=== PATIENT | male | born 1935 | race Hispanic/Latino ===

== ENCOUNTER 2017-12-16 07:12 | Observation (INO) | payer MEDICARE ==
[2017-12-16] MEDS ORDERED: VERSED ONE (08:33)
[2017-12-16] MEDS ORDERED: SUBLIMAZE ONE (08:33)
[2017-12-16] MEDS ORDERED: DIPRIVAN 10 MG/ML IV ONE (08:34)
[2017-12-16] MEDS ORDERED: XYLOCAINE MPF 2% ONE (08:34)
[2017-12-16] MEDS ORDERED: ROBINUL ONE ×3 (08:34→12:06)
[2017-12-16] MEDS ORDERED: ZEMURON IV ONE (08:35)
[2017-12-16] MEDS ORDERED: MORPHINE IV PRN ×2 (08:42→18:31)
[2017-12-16] MEDS ORDERED: TYLENOL PO PRN ×2 (08:42→18:31)
--- NOTE | 2017-12-16 08:49 | Anesthesia Consultation ---
Anesthesia Consult and Med Hx - Airway Anesthetic Teeth Evaluation: Poor ROM Head & Neck: Adequate Mallampati Class: Class II - Pulmonary Exam CTA: Yes - Cardiac Exam Cardiac Exam: RRR - Pre-Operative Health Status ASA Pre-Surgery Classification: ASA4 Proposed Anesthetic Plan: General (difficulty hearing), IV Sedation - Pulmonary Hx Smoking: Yes (QUIT IN 1974) COPD: Yes - Cardiovascular System Hx Hypertension: Yes (OVER 10 YEARS) - Central Nervous System Hx Psychiatric Problems: No - Endocrine Hx Insulin Dependent Diabetes: No Hx Non-Insulin Dependent Diabetes: Yes - Other Systems Hx Alcohol Use: No Hx Substance Use: No Hx Cancer: Yes (SKIN)
--- NOTE | 2017-12-16 08:50 | Anesthesia Day of Surgery ---
Anesthesia Day of Surgery - Day of Surgery Patient Examined: Yes Patient H&P Reviewed: Yes Patient is NPO: Yes Beta Blockers: No Cardiac Clearance: No Pulmonary Clearance: No
[2017-12-16] MEDS ORDERED: NACL 0.9% 1000 ML 1,000 ML IV SCH (09:00)
[2017-12-16] MEDS ORDERED: NEO SYNEPHRINE/NS Syringe(OR USE) IV ONE (09:25)
[2017-12-16] MEDS ORDERED: ANCEF/STERILE WATER 2 GM/20 ML IV NR (10:00)
[2017-12-16] MEDS ORDERED: MARCAINE 0.25% INFILTRATI ONE ×2 (10:29→11:33)
--- NOTE | 2017-12-16 10:36 | Anesthesia Day of Surgery ---
Anesthesia Day of Surgery - Day of Surgery Patient Examined: Yes Patient H&P Reviewed: Yes Patient is NPO: Yes
[2017-12-16] MEDS ORDERED: CLEOCIN 900 MG/50 mL 900 MG/50 ML BAG IV SCH (11:00)
[2017-12-16] MEDS ORDERED: ePHEDrine SULFATE ONE (11:03)
[2017-12-16] MEDS ORDERED: NEO SYNEPHRINE ONE (11:21)
[2017-12-16] MEDS ORDERED: ARTIFICIAL TEARS OPHTH OINT ONE (11:21)
[2017-12-16] MEDS ORDERED: NACL 0.9% 100 ML ONE (11:21)
[2017-12-16] MEDS ORDERED: ZOFRAN ONE (11:39)
[2017-12-16] MEDS ORDERED: NEOSTIGMINE ONE (12:06)
[2017-12-16] MEDS ORDERED: ANTIBIOTIC OINT TP ONE ×2 (12:08→12:11)
[2017-12-16] MEDS ORDERED: BSS ONE (12:08)
[2017-12-16] MEDS ORDERED: BSS OU ONE (12:12)
--- NOTE | 2017-12-16 12:47 | Post Anesthesia Evaluation ---
- Post Anesthesia Evaluation Patient Participated: Yes Airway Patent: Yes Stable Respiratory Function: Yes Nausea/Vomiting: Yes Temp > 96.8F: Yes Pain Manageable: Yes Adequeate Hydration: Yes Anesthesia Complications: No
[2017-12-16] MEDS ORDERED: ZOFRAN IV PRN ×2 (13:24→18:31)
[2017-12-16] MEDS ORDERED: DILAUDID IV PRN (13:24)
[2017-12-16 14:21] LABS: Calcium 8.2 mg/dL (8.4-10.2)
[2017-12-16] MEDS ORDERED: NACL 0.9% 1000 ML 1,000 ML ONE (14:21)
[2017-12-16] MEDS ORDERED: TYLENOL PO NR (15:00)
[2017-12-16] MEDS ORDERED: NON-FORMULARY (Losartan Potassium 100 MG) PO SCH (18:30)
[2017-12-16] MEDS ORDERED: NON-FORMULARY (Metolazone 5 MG) PO SCH (18:30)
[2017-12-16] MEDS ORDERED: ROPINIROLE HCL 0.25 MG PO SCH (18:30)
[2017-12-16] MEDS ORDERED: NON-FORMULARY (Amlodipine Besylate 10 MG) PO SCH (18:30)
[2017-12-16] MEDS ORDERED: JANUVIA 100 MG PO SCH (18:30)
[2017-12-16] MEDS ORDERED: POTASSIUM CHLORIDE 8 MEQ PO SCH (18:30)
[2017-12-16] MEDS ORDERED: SODIUM CHLORIDE FLUSH SYRINGE 10 ML IV PRN (18:31)
[2017-12-16] MEDS ORDERED: PERCOCET 5/325 PO PRN (18:31)
[2017-12-16] MEDS ORDERED: DUONEB *Not for PRN Use IH (18:36)
--- NOTE | 2017-12-16 18:44 | History and Physical Report ---
History of Present Illness Date of examination: 12/16/17 Date of admission: 12/16/17 15:42 Chief complaint: Chief complaint: Shortness of breath and low oxygen saturations- postoperative. History of present illness: History of present illness: 82-year-old male who had a nose lesion removed and a flap was placed taken from the earlobe. Postop patient was hypoxic persistently hence admission to the floor for management of hypoxia and shortness of breath. Patient is a remote smoker until 1974. Patient has history of COPD hypertension and insulin-dependent diabetes. Patient has been wheezing while in the PACU. Because of the low sats it was decided to admit the patient directly from the PACU. Cough productive of mucoid sputum. No fever or chills Past History Past Medical History: diabetes, hypertension Past Surgical History: Other (nose surgery) Social history: lives with family, smoking (Till 1974), full code Family history: hypertension Medications and Allergies Allergies Allergy/AdvReac Type Severity Reaction Status Date / Time codeine Allergy Severe DRIVE ME Verified 12/14/17 16:08 CRAZY Penicillins Allergy Swelling Verified 12/14/17 16:08 pseudoephedrine Allergy MAKES HIM Verified 12/14/17 16:08 [From [facility]] FEEL CRAZY Sulfa (Sulfonamide Allergy Swelling Verified 12/14/17 16:08 Antibiotics) Home Medications Medication Instructions Recorded Confirmed Last Taken Type Amlodipine Besylate 10 mg PO 12/16/17 12/16/17 History Januvia 100 mg 12/16/17 12/15/17 History Levemir Flextouch 62.5 mcg 12/16/17 12/15/17 History Losartan Potassium PO 12/16/17 12/16/17 History Metolazone 5 mg 12/16/17 12/15/17 History Potassium Chloride PO 12/16/17 12/15/17 History Ropinirole HCl 0.25 mg 12/16/17 12/15/17 History Spironolactone [Aldactone] PO 12/16/17 12/15/17 History Active Meds: Active Medications Acetaminophen (Tylenol) 650 mg PO PREOP NR Stop: 12/16/17 23:59 Last Admin: 12/16/17 14:40 Dose: 650 mg Acetaminophen (Tylenol) 650 mg PO Q4H PRN PRN Reason: Pain MILD(1-3)/Fever >100.5/PERRY Albuterol/Ipratropium (Duoneb *Not For Prn Use*) 1 ampul IH QIDRT MIKAYLA Albuterol/Ipratropium (Duoneb *Not For Prn Use*) 1 ampul IH Q3H PRN PRN Reason: Wheezing Famotidine (Pepcid) 20 mg IV BID MIKAYLA Hydromorphone HCl (Dilaudid) 0.25 mg IV Q10MIN PRN PRN Reason: Pain, Moderate (4-6) Stop: 12/16/17 23:59 Last Admin: 12/16/17 13:25 Dose: 0.25 mg Sodium Chloride (Nacl 0.9% 1000 Ml) 1,000 mls @ 42 mls/hr IV DIRECT MIKAYLA Clindamycin HCl (Cleocin 900 Mg/50 Ml) 900 mg in 50 mls @ 100 mls/hr IV PREOP MIKAYLA; Protocol Stop: 12/16/17 23:59 Insulin Human Lispro (Humalog) 0 unit SUB-Q ACHS [facility]; Protocol Miscellaneous Medication (Amlodipine Besylate) 10 mg PO QDAY [facility] Miscellaneous Medication (Januvia) 100 mg PO QDAY [facility] Miscellaneous Medication (Losartan Potassium) 100 mg PO QDAY [facility] Miscellaneous Medication (Metolazone) 5 mg PO QDAY [facility] Miscellaneous Medication (Potassium Chloride) 8 meq PO QDAY [facility] Miscellaneous Medication (Ropinirole Hcl) 0.25 mg PO QDAY [facility] Morphine Sulfate (Morphine) 2 mg IV Q4H PRN PRN Reason: Pain, Moderate (4-6) Ondansetron HCl (Zofran) 4 mg IV ONCE PRN PRN Reason: Nausea And Vomiting Ondansetron HCl (Zofran) 4 mg IV Q8H PRN PRN Reason: Nausea And Vomiting Oxycodone/Acetaminophen (Percocet 5/325) 1 tab PO Q6H PRN PRN Reason: Pain, Moderate (4-6) Sodium Chloride (Sodium Chloride Flush Syringe 10 Ml) 10 ml IV BID [facility] Sodium Chloride (Sodium Chloride Flush Syringe 10 Ml) 10 ml IV PRN PRN PRN Reason: LINE FLUSH Review of Systems All systems: negative Cardiovascular: shortness of breath, dyspnea on exertion Respiratory: dyspnea on exertion, congestion, wheezing Exam - Physical Exam Narrative exam: Lying in bed on 28% Ventimask - Constitutional Vitals: Temp Pulse Resp BP Pulse Ox 97.5 F L 55 L 17 102/44 90 12/16/17 16:50 12/16/17 16:50 12/16/17 16:50 12/16/17 16:50 12/16/17 16:50 General appearance: Present: mild distress, well-nourished - EENT Eyes: Present: PERRL ENT: hearing intact, clear oral mucosa - Neck Neck: Present: supple, normal ROM - Respiratory Respiratory effort: normal Respiratory: bilateral: CTA, rales, rhonchi - Cardiovascular Heart rate: 80 Rhythm: regular Heart Sounds: Present: S1 & S2. Absent: rub, click - Extremities Extremities: no ischemia, pulses intact, pulses symmetrical, No edema Peripheral Pulses: within normal limits - Abdominal General gastrointestinal: Present: soft, non-tender, non-distended, normal bowel sounds Male genitourinary: Present: normal - Integumentary Integumentary: Present: clear, warm, dry - Musculoskeletal Musculoskeletal: gait normal, strength equal bilaterally - Psychiatric Psychiatric: appropriate mood/affect, intact judgment & insight - Neurologic Neurologic: CNII-XII intact, moves all extremities - Allied Health Allied health notes reviewed: nursing, case management Results - Labs CBC & Chem 7: 12/16/17 13:58 Labs: Laboratory Last Values Sodium 139 mmol/L (137-145) 12/16/17 13:58 Potassium 5.0 mmol/L (3.6-5.0) 12/16/17 13:58 Chloride 105.5 mmol/L (98-107) 12/16/17 13:58 Carbon Dioxide 22 mmol/L (22-30) 12/16/17 13:58 Anion Gap 17 mmol/L 12/16/17 13:58 BUN 27 mg/dL (9-20) H 12/16/17 13:58 Creatinine 1.6 mg/dL (0.8-1.5) H 12/16/17 13:58 Estimated GFR 41 ml/min 12/16/17 13:58 BUN/Creatinine Ratio 17 % 12/16/17 13:58 Glucose 180 mg/dL (75-100) H 12/16/17 13:58 POC Glucose 165 (70-105) H 12/16/17 12:39 Calcium 8.2 mg/dL (8.4-10.2) L 12/16/17 13:58 - Imaging and Cardiology Chest x-ray: report reviewed Assessment and Plan Advance Directives: Yes (Full code) VTE prophylaxis?: Chemical Plan of care discussed with patient/family: Yes - Patient Problems (1) Acute respiratory failure Current Visit: Yes Status: Acute Qualifiers: Respiratory failure complication: hypoxia Qualified Code(s): J96.01 - Acute respiratory failure with hypoxia Plan to address problem: Postop patient had persistent low oxygen levels which improved with 28% Ventimask to 92. Initial oxygen levels were ranging from 80-85. And patient also had rhonchi bilaterally. Hence it was decided to admit for 1 or 2 days for observation and treatment (2) Acute diastolic heart failure Current Visit: Yes Status: Acute Plan to address problem: We will get an echocardiogram for ejection fraction and valve function Lasix initiated 1 dose of 40 mg given now Patient is also on metolazone 5 mg daily (3) COPD with acute exacerbation Current Visit: Yes Status: Acute Plan to address problem: Patient initiated on DuoNeb nebs and IV antibiotics and low-dose IV Solu-Medrol at 40 mg every 8 (4) Insulin dependent diabetes mellitus Current Visit: Yes Status: Chronic Plan to address problem: Continue insulin coverage and Januvia 100 mg once a day or equivalent alternative (5) Status post surgery Current Visit: Yes Status: Acute Plan to address problem: Surgery on the tip of nose for removal of a skin lesion probably cancerous. Flap from the ear was placed on the nose (6) Hypertension Current Visit: Yes Status: Chronic Qualifiers: Hypertension type: essential hypertension Qualified Code(s): I10 - Essential (primary) hypertension Plan to address problem: Continue antihypertensives (7) DVT prophylaxis Current Visit: Yes Status: Acute Plan to address problem: On heparin 5000 q12 h Sub Q
[2017-12-16] MEDS ORDERED: PROVENTIL IH PRN (18:48)
[2017-12-16] MEDS ORDERED: ZAROXOLYN PO SCH (19:00)
[2017-12-16] MEDS ORDERED: LASIX IV SCH (19:00)
[2017-12-16 19:37] LABS: Basophils # (Auto) 0.1 K/mm3 (0.0-0.1); Basophils % (Auto) 0.7 % (0.0-1.8); Eosinophils # (Auto) 0.1 K/mm3 (0.0-0.4); Eosinophils % (Auto) 0.9 % (0.0-4.3); Hematocrit 35.4 % (35.5-45.6); Lymphocytes # (Auto) 1.7 K/mm3 (1.2-5.4); Lymphocytes % (Auto) 13.7 % (13.4-35.0); Mean Corpuscular HGB Conc 34 % (32-34); Mean Corpuscular Hemoglobin 30 pg (28-32); Mean Corpuscular Volume 89 fl (84-94); Monocytes # (Auto) 0.7 K/mm3 (0.0-0.8); Monocytes % (Auto) 5.6 % (0.0-7.3); Platelet Count 311 K/mm3 (140-440); Red Cell Distribution Width 14.4 % (13.2-15.2)
[2017-12-16 19:58] LABS: Albumin 3.4 g/dL (3.9-5); Calcium 8.2 mg/dL (8.4-10.2)
[2017-12-16] MEDS ORDERED: LEVAQUIN 750MG/150ML 750 MG/150 ML BAG IV SCH (20:00)
--- NOTE | 2017-12-16 20:26 | Operative Report ---
PREOPERATIVE DIAGNOSES: 1. Acquired deformity of nose status post Mohs excision of skin cancer. 2. Personal history of skin cancer to the nose. POSTOPERATIVE DIAGNOSES: 1. Acquired deformity of nose status post Mohs excision of skin cancer. 2. Personal history of skin cancer to the nose. PROCEDURE: Nasal reconstruction: 1. Superiorly based nasolabial flap to nose. 2. Ear cartilage graft to nose. 3. Mucosal advancement flap, nose. SURGEON: Jaciel Lee MD [employer]ER: None. ANESTHESIA: General. DRAINS: None. SPECIMENS: None. COMPLICATIONS: None. ESTIMATED BLOOD LOSS: 10 mL. INDICATIONS: The patient is an 82-year-old gentleman who presents with a large nasal defect and deformity of the nose following excision of a skin cancer to the left alar rim. He is missing skin mucosa and cartilage with a gap involving the alar rim on the left side of the nose. We discussed options for reconstruction and decided to proceed with the above-mentioned procedure. Medical clearance has been obtained from his primary care physician. After the surgery, technical aspects, typical recovery period, and potential risks involved were discussed fully including but not limited to postop bleeding, infection, pain, scarring, deformity, hematoma, or seroma formation, risk of paresthesias or numbness, partial or complete loss of the flap, failure to achieve artistic goals, and need for revision surgery. He understands the staged nature of the procedure and then a subsequent division and inset will be planned for in the near future. DESCRIPTION OF PROCEDURE: The patient was brought to the operating room and placed on the operating table, was induced with general anesthesia prior to which IV antibiotics and pneumatic compression boots for DVT prophylaxis were utilized. The head and neck there was prepped with Betadine gel and draped in the usual sterile fashion. A 0.25% Marcaine was injected into the operative field into the donor and recipient sites. Attention was first turned towards harvesting an ear cartilage graft from the left postauricular surface. An incision was made with a 15 blade scalpel and cartilage. A strip of cartilage from the conchal bowl was excised with a posterior approach and placed in a saline moistened gauze. The cartilage was fairly brittle and did not hold sutures well at the donor site, and therefore, I was unable to reapproximate the edge of the cartilage in this area. Hemostasis was meticulously achieved and skin closure was facilitated with a running locking 4-0 Monocryl suture. The recipient site was then prepared by excision of additional 1 mm of skin back to fresh straight bleeding skin edge. Tunnel was created anteriorly and posteriorly for the placement of the cartilage graft. Prior to placing the cartilage graft, a right pedicled mucosal advancement flap was designed and elevated with a 15 blade scalpel inside the left naris. a nasolabial flap based superiorly was incised with a 15 blade scalpel along the nasolabial fold and cheek. It was elevated with tenotomy scissors. The donor site was widely undermined to promote a tension-free repair with a tenotomy scissors. Meticulous hemostasis was achieved with electrocautery. The site was irrigated with saline and closed in layers with 4-0 Monocryl below the deep dermis and a running 5-0 nylon suture at the level of the skin donor site. The cartilage graft was trimmed to the appropriate size and dimension and placed into the anterior and posterior pockets to recreate the alar rim structure. This was sewn in place with interrupted 5-0 chromic sutures. The nasolabial flap was truncated to appropriate size, bent along its undersurface, taking care not to violate the deep dermal plexus. There was inset with a combination of horizontal mattress and simple 5-0 nylon sutures overlying the cartilage graft. The inferior edge of this was tunneled to leading edge of the mucosal advancement flap with interrupted 5-0 chromic sutures. Antibiotic moistened Xeroform gauze was applied to all sites. He tolerated the procedure well and was extubated and transferred to recovery area in stable condition. JOB# [id number] /NOMI
[2017-12-16] MEDS: DUONEB *Not for PRN Use IH SCH (21:02)
--- NOTE | 2017-12-16 21:09 | XRay Report ---
FINAL REPORT PROCEDURE: XR CHEST 1V AP TECHNIQUE: Chest radiograph anteroposterior view. CPT 56251 HISTORY: sob post operative COMPARISON: No prior studies are available for comparison. FINDINGS: Heart: Cardiac size is upper limit of normal.. Mediastinum/Vessels: Normal. Lungs/Pleural space: There is suboptimal inspiration. An ill-defined nodular density measuring 1.1 centimeters is noted in the left midlung. Diffuse prominence of interstitial markings is noted. Bilateral pleural spaces are clear.. Bony thorax: No acute osseous abnormality. Life support devices: None. IMPRESSION: Limited study due to suboptimal inspiration 1.1 centimeter ill-defined nodular density may represent infiltrate versus mass. A two view chest study is recommended for further evaluation. Prominent interstitial markings most likely represent interstitial fibrosis versus interstitial edema..
[2017-12-16] MEDS ORDERED: PEPCID IV SCH (22:00)
[2017-12-16] MEDS ORDERED: SODIUM CHLORIDE FLUSH SYRINGE 10 ML IV SCH (22:00)
[2017-12-16] MEDS ORDERED: REQUIP PO SCH (22:00)
[2017-12-16] MEDS ORDERED: ANCEF/NS 1 GM/50 ML 1 GM/50 ML BAG IV SCH (22:00)
[2017-12-16] MEDS: KLOR-CON 8 PO SCH (23:29)
[2017-12-16] MEDS: ceFAZolin 1 GM in NACL 0.9% 20 ML IV SCH (23:31)
[2017-12-16] MEDS: HumaLOG SUB-Q SCH (23:43)
[2017-12-17] MEDS: COZAAR PO SCH ×2 (01:52→16:59)
[2017-12-17] MEDS: TRADJENTA PO SCH ×2 (01:53→13:40)
[2017-12-17] MEDS: NORVASC PO SCH ×2 (01:54→10:44)
[2017-12-17 05:16] LABS: Hematocrit 37.4 % (35.5-45.6); Hemoglobin 12.3 gm/dl (11.8-15.2); Mean Corpuscular HGB Conc 33 % (32-34); Mean Corpuscular Hemoglobin 29 pg (28-32); Mean Corpuscular Volume 89 fl (84-94); Platelet Count 337 K/mm3 (140-440); Red Blood Count 4.21 M/mm3 (3.65-5.03); Red Cell Distribution Width 14.5 % (13.2-15.2)
[2017-12-17 05:31] LABS: Calcium 8.7 mg/dL (8.4-10.2)
[2017-12-17] MEDS: ceFAZolin 1 GM in NACL 0.9% 20 ML IV SCH (06:18)
[2017-12-17 06:30] LABS: Anisocytosis 1+; Band Neutrophils # (Manual) 1.1 K/mm3; Basophils % (Manual) 0 % (0.0-1.8); Eosinophils % (Manual) 0 % (0.0-4.3); Total Cells Counted 100
[2017-12-17 06:31] LABS: Large Platelets Few
[2017-12-17] MEDS: DUONEB *Not for PRN Use IH SCH ×3 (08:00→17:21)
[2017-12-17] MEDS ORDERED: PEPCID PO SCH (10:00)
[2017-12-17] MEDS: KLOR-CON 8 PO SCH (10:46)
--- NOTE | 2017-12-17 12:16 | Consultation ---
History of Present Illness Consult date: 12/17/17 Consult reason: congestive heart failure History of present illness: This is an 82yr old male who presented for outpatient nasal reconstruction surgery. Postoperatively, patient was noted hypoxic with reports of oxygen saturations 88% and admitted for further evaluation. A cardiac consultation was requested for CHF evaluation. Patient denies a prior cardiac history. He does not follow with a housekeeping/laundry as an outpatient. A chest xray reports suspects interstitial fibrosis versus interstitial edema. His postoperative 12 lead ECG is a sinus rhythm with second degree AV block which has since resolved. He currently, has a normal sinus rhythm on telemetry monitoring. Past History Past Medical History: diabetes, hypertension Past Surgical History: Other (nose surgery) Social history: lives with family, full code Family history: hypertension Medications and Allergies Allergies Allergy/AdvReac Type Severity Reaction Status Date / Time codeine Allergy Severe DRIVE ME Verified 12/14/17 16:08 CRAZY Penicillins Allergy Swelling Verified 12/14/17 16:08 pseudoephedrine Allergy MAKES HIM Verified 12/14/17 16:08 [From [facility]] FEEL CRAZY Sulfa (Sulfonamide Allergy Swelling Verified 12/14/17 16:08 Antibiotics) Home Medications Medication Instructions Recorded Confirmed Last Taken Type Amlodipine Besylate 10 mg PO 12/16/17 12/16/17 History Januvia 100 mg 12/16/17 12/15/17 History Levemir Flextouch 62.5 mcg 12/16/17 12/15/17 History Losartan Potassium PO 12/16/17 12/16/17 History Metolazone 5 mg 12/16/17 12/15/17 History Potassium Chloride PO 12/16/17 12/15/17 History Ropinirole HCl 0.25 mg 12/16/17 12/15/17 History Spironolactone [Aldactone] PO 12/16/17 12/15/17 History Active Meds: Active Medications Acetaminophen (Tylenol) 650 mg PO Q4H PRN PRN Reason: Pain MILD(1-3)/Fever >100.5/PERRY Albuterol (Proventil) 2.5 mg IH Q4HRT PRN PRN Reason: Wheezing Albuterol/Ipratropium (Duoneb *Not For Prn Use*) 1 ampul IH QIDRT MIKAYLA Last Admin: 12/17/17 08:00 Dose: Not Given Amlodipine Besylate (Norvasc) 10 mg PO DAILY [facility] Last Admin: 12/17/17 10:44 Dose: 10 mg Famotidine (Pepcid) 10 mg PO BID [facility] Last Admin: 12/17/17 10:44 Dose: 10 mg Furosemide (Lasix) 40 mg IV Q24H [facility] Last Admin: 12/16/17 22:25 Dose: 40 mg Sodium Chloride (Nacl 0.9% 1000 Ml) 1,000 mls @ 42 mls/hr IV DIRECT MIKAYLA Levofloxacin/Dextrose (Levaquin 750mg/150ml) 750 mg in 150 mls @ 100 mls/hr IV Q48HR [facility]; Protocol Cefazolin Sodium 1 gm/ Sodium (Chloride) 20 mls @ 2 mls/min IV Q12HR [facility] Insulin Human Lispro (Humalog) 0 unit SUB-Q ACHS [facility]; Protocol Last Admin: 12/16/17 23:43 Dose: 3 unit Linagliptin (Tradjenta) 5 mg PO QDAY [facility] Last Admin: 12/17/17 01:53 Dose: Not Given Losartan Potassium (Cozaar) 100 mg PO QDAY [facility] Last Admin: 12/17/17 01:52 Dose: Not Given Methylprednisolone Sodium Succinate (Solu-Medrol) 40 mg IV Q8HR [facility] Last Admin: 12/17/17 06:17 Dose: 40 mg Metolazone (Zaroxolyn) 5 mg PO QDAY [facility] Last Admin: 12/16/17 23:30 Dose: 5 mg Morphine Sulfate (Morphine) 2 mg IV Q4H PRN PRN Reason: Pain, Moderate (4-6) Ondansetron HCl (Zofran) 4 mg IV Q8H PRN PRN Reason: Nausea And Vomiting Last Admin: 12/17/17 08:04 Dose: 4 mg Oxycodone/Acetaminophen (Percocet 5/325) 1 tab PO Q6H PRN PRN Reason: Pain, Moderate (4-6) Potassium Chloride (Klor-Con 8) 8 meq PO QDAY [facility] Last Admin: 12/17/17 10:46 Dose: 8 meq Ropinirole HCl (Requip) 0.25 mg PO QHS [facility] Last Admin: 12/16/17 23:29 Dose: 0.25 mg Sodium Chloride (Sodium Chloride Flush Syringe 10 Ml) 10 ml IV BID MIKAYLA Sodium Chloride (Sodium Chloride Flush Syringe 10 Ml) 10 ml IV PRN PRN PRN Reason: LINE FLUSH Physical Examination Vital Signs Temp Pulse Resp BP Pulse Ox 98.8 F 56 L 20 152/51 96 12/16/17 08:25 12/16/17 08:25 12/16/17 08:25 12/16/17 08:25 12/16/17 08:25 General appearance: no acute distress HEENT: Positive: PERRL Cardiac: Positive: Reg Rate and Rhythm Neuro: Positive: Grossly Intact Extremities: Absent: edema Results 12/17/17 04:12 12/17/17 04:12 Cardiac Enzymes 12/16/17 12/17/17 Range/Units 19:26 04:12 AST 16 19 (5-40) units/L CBC 12/16/17 12/17/17 Range/Units 19:26 04:12 WBC 12.7 H 16.0 H (4.5-11.0) K/mm3 RBC 4.00 4.21 (3.65-5.03) M/mm3 Hgb 12.0 12.3 (11.8-15.2) gm/dl Hct 35.4 L 37.4 (35.5-45.6) % Plt Count 311 337 (140-440) K/mm3 Lymph # 1.7 (1.2-5.4) K/mm3 [place] # 0.7 (0.0-0.8) K/mm3 Eos # 0.1 (0.0-0.4) K/mm3 Baso # 0.1 (0.0-0.1) K/mm3 Comprehensive Metabolic Panel 12/16/17 12/16/17 12/17/17 Range/Units 13:58 19:26 04:12 Sodium 139 137 137 (137-145) mmol/L Potassium 5.0 5.0 4.6 (3.6-5.0) mmol/L Chloride 105.5 102.2 99.8 (98-107) mmol/L Carbon Dioxide 22 19 L 20 L (22-30) mmol/L BUN 27 H 25 H 25 H (9-20) mg/dL Creatinine 1.6 H 1.6 H 1.6 H (0.8-1.5) mg/dL Glucose 180 H 260 H 247 H (75-100) mg/dL Calcium 8.2 L 8.2 L 8.7 (8.4-10.2) mg/dL AST 16 19 (5-40) units/L ALT 12 9 (7-56) units/L Alkaline Phosphatase 35 42 (35-129) units/L Total Protein 6.4 7.4 (6.3-8.2) g/dL Albumin 3.4 L 4.0 (3.9-5) g/dL Assessment and Plan Acute hypoxic respiratory failure s/p nasal surgery Hypertension Diabetes We will get an echocardiogram for LVEF assessment.
[2017-12-17] MEDS: HumaLOG SUB-Q SCH ×2 (13:39→16:57)
[2017-12-17 15:52] VITALS: BP 138/48
[2017-12-17] MEDS ORDERED: ANTIBIOTIC OINT TP SCH (17:00)
--- NOTE | 2017-12-17 17:28 | Discharge Summary ---
Providers - Providers Date of Admission: 12/16/17 15:42 Date of discharge: 12/17/17 Attending physician: CLIFTON CORTEZ 12/16/17 19:19 Consult to Physician [CONS] Routine Comment: Consulting Provider: STEPHEN TALLEY Physician Instructions: Reason For Exam: CHF/COPD Primary care physician: Primary care Physician Hospitalization Reason for admission: Shortness of breath post op Pertinent studies: CXR, ECHO Procedures: Superiorly based nasolabial flap for a nose for repair fo nose deformity s/p Mohs excision of nose cancer Hospital course: 82-year-old male who has a history of COPD, DM, HTN had a nose lesion removed and a flap was placed taken from the earlobe. Postop patient was hypoxic persistently hence admission to the floor for management of hypoxia and shortness of breath. Patient is a remote smoker until 1974. Patient has history of COPD hypertension and insulin-dependent diabetes. Patient has been wheezing while in the PACU. Because of the low sats it was decided to admit the patient directly from the PACU. Cough productive of mucoid sputum. No fever or chills. Was commence on bronchodilator on admission with iv solumedrol. EKG showed Wenckebach AV block and junctional rhythm though to be like from enhance vagal tone post surgery percardiologist that was consulted. Cardia ischemic evaluation was recommended. However pt decline wanting to go home. He is sitting up and taking with friends with no chest pain or shortness of breath. Has Leukocytosis icndy is thought to be secondary to steriod administration. Has no fever. Pt will therefore be discharged to f/u with his PCP in 2-3 days and his plastic surgon in 1 week. He ws advised to continue with Anoro in additional to albuterol inhaler. He expressed understanding of the discharge plan. I discussed with his plastic surgeon. Disposition: DC-01 TO HOME OR SELFCARE Time spent for discharge: 35 min - Discharge Diagnoses (1) Acute respiratory failure Status: Acute Qualifiers: Respiratory failure complication: hypoxia Qualified Code(s): J96.01 - Acute respiratory failure with hypoxia (2) COPD with acute exacerbation Status: Acute (3) Status post surgery Status: Acute (4) Insulin dependent diabetes mellitus Status: Chronic Core Measure Documentation - Palliative Care Palliative Care/ Comfort Measures: Not Applicable - Core Measures Any of the following diagnoses?: none Exam - Constitutional Vitals: Temp Pulse Resp BP Pulse Ox 98.1 F 93 H 20 138/48 91 12/17/17 08:01 12/17/17 12:50 12/17/17 12:50 12/17/17 04:33 12/17/17 08:02 General appearance: Present: no acute distress, well-nourished - EENT Eyes: Present: PERRL ENT: hearing intact, clear oral mucosa, other (surgical dressing on the left side of the nose) - Neck Neck: Present: supple, normal ROM - Respiratory Respiratory effort: normal Respiratory: bilateral: CTA - Cardiovascular Heart Sounds: Present: S1 & S2. Absent: rub, click - Extremities Extremities: pulses symmetrical, No edema Peripheral Pulses: within normal limits - Abdominal General gastrointestinal: Present: soft, non-tender, non-distended, normal bowel sounds Male genitourinary: Present: normal - Integumentary Integumentary: Present: clear, warm, dry - Musculoskeletal Musculoskeletal: gait normal, strength equal bilaterally - Psychiatric Psychiatric: appropriate mood/affect, intact judgment & insight - Neurologic Neurologic: CNII-XII intact, moves all extremities Plan Activity: fall precautions Weight Bearing Status: Weight Bear as Tolerated Diet: diabetic Follow up with: JAIRO BOYD [Other] - 7 Days Prescriptions: ALBUTEROL Inhaler [ProAir HFA Inhaler] 2 puff IH QID PRN #90 inhalation PRN Reason: Shortness Of Breath Prednisone 20 mg PO DAILY #7 tablet Spironolactone [Aldactone] 25 mg PO DAILY #30 tablet
[2017-12-17] MEDS ORDERED: ceFAZolin 1 GM in NACL 0.9% 20 ML IV SCH (22:00)
[2017-12-18] MEDS ORDERED: LEVAQUIN 750MG/150ML 750 MG/150 ML BAG IV SCH (10:00)
== END 2017-12-17 19:20 | disposition home or self-care (01) ==
LOC: OR 07:12 → 3B-SURG 15:42
PROVIDERS: ADMIT Internal Medicine; ATTEND Plastic Surgery
DX: M95.0 Acquired deformity of nose (principal); J44.1 Chronic obstructive pulmonary disease with (acute) exacerbation; Z85.828 Personal history of other malignant neoplasm of skin; I45.10 Unspecified right bundle-branch block
CPT/HCPCS: 30400; 36415; 71045; 80048; 80053; 82962; 83036; 85007; 85025; 93005; 93010; 93306; 94640; 94760; 96365; 96372; 96375; 96376; G0378; J0690; J1170; J1940; J1956; J2250; J2370; J2405; J2704; J2710; J2930; J3010; J7030; J1815